=== PATIENT | male | born 1990 | race Two or more races ===

== ENCOUNTER 2016-10-18 01:17 | Emergency (ER) | payer SELFPAY ==
[~2016-10-18] VITALS: Ht 188 cm; Wt 110.0 kg
[2016-10-18 01:24] VITALS: Ht 188 cm; Wt 110.0 kg
== END 2016-10-18 03:55 | disposition left against medical advice (07) ==
LOC: E/R 01:17
DX: Z53.21 Procedure and treatment not carried out due to patient leaving prior to being seen by health care provider (principal)

== ENCOUNTER 2017-10-21 00:06 | Emergency (ER) | END 2017-10-21 01:56 | disposition left against medical advice (07) ==

== ENCOUNTER 2017-10-24 00:51 | Emergency (ER) | END 2017-10-24 04:41 | disposition home or self-care (01) ==